=== PATIENT | female | born 1940 | race Caucasian/White ===

== ENCOUNTER 2017-06-18 00:33 | Emergency (ER) | payer OTHER, BC ==
[~2017-06-18] VITALS: Ht 157.5 cm; Wt 84.5 kg
[~2017-06-18 00:33] MED LIST: ASPIR 8181 M1 PO; CALAN120 MG PO; GLUCOPHAGE500 MG PO; HYDROCODON-ACE1 EAC7 PO; PRAVACHOL80 MG PO; SPIRIVA1 INHALATI IH; ZESTORETIC 20-1 EAC1 NG
[2017-06-18 01:20] LABS: APPEARANCE CLEAR ((CLEAR)); BILIRUBIN NEGATIVE; BLOOD SMALL; COLOR YELLOW ((YELLOW)); GLUCOSE (STRIP) NEGATIVE; KETONES NEGATIVE; LEUKOCYTES NEGATIVE; NITRITE NEGATIVE; PROTEIN (STRIP) NEGATIVE; SPECIFIC GRAVITY 1.017 (1.000-1.030); UROBILINOGEN 0.2 MG/DL (0.2-1.0)
[2017-06-18 01:26] LABS: BACTERIA RARE /HPF; EPITHELIAL CELLS RARE /HPF; MUCUS TRACE /LPF; RED BLOOD CELLS 0-5 /HPF (0-5); UCUL ADDED? NO; WHITE BLOOD CELLS 0-5 /HPF (0-5)
[2017-06-18 01:27] LABS: BASOPHIL (%) 0.2 % (0-1); EOSINOPHIL (%) 1.1 % (0-5); EOSINOPHIL COUNT 0.1 K/uL (0-0.3); HEMATOCRIT 42.4 % (36.0-46.0); HEMOGLOBIN 13.9 G/DL (11.9-15.5); IMMATURE GRANULOCYTE (%) 0.3 % (0.0-0.7); LYMPHOCYTE (%) 34.4 % (15-42); LYMPHOCYTE COUNT 3.4 K/uL (1.0-2.8); MCH 29.3 PG (29.0-34.0); MCHC 32.8 G/DL (30.0-36.0); MCV 89.3 FL (83-99); MONOCYTE (%) 5.5 % (3-12); MONOCYTE COUNT 0.5 K/uL (0-0.8); NEUTROPHIL (%) 58.5 % (45-76); NEUTROPHIL COUNT 5.7 K/uL (1.8-6.4); PLATELET COUNT 311 K/uL (156-360); RBC DIS.WIDTH-CV 13.5 % (11.8-14.6); RBC DIS.WIDTH-SD 44.4 % (39-53); RED BLOOD COUNT 4.75 M/uL (3.80-5.20); WHITE BLOOD COUNT 9.8 K/uL (4.1-10.2)
[2017-06-18 01:36] LABS: ALBUMIN 3.8 g/dL (3.2-4.8); CHLORIDE 109 mEq/L (99-109); POTASSIUM 3.7 mEq/L (3.7-5.4); SODIUM 142 mEq/L (136-147)
[2017-06-18 01:37] LABS: MAGNESIUM 1.8 mg/dL (1.3-2.7)
[2017-06-18 01:38] LABS: GLUCOSE 167 mg/dL (70-99); TOTAL PROTEIN 6.6 g/dL (6.4-8.3)
[2017-06-18 01:40] LABS: TOTAL BILIRUBIN 0.3 mg/dL (0.0-1.0)
[2017-06-18 01:42] LABS: ALKALINE PHOSPHATASE 137 IU/L (3-129); GFR ESTIMATE (CALCULATED) 57 mL/min/
[2017-06-18 01:43] LABS: UREA NITROGEN (BUN) 18 mg/dL (9-23)
[2017-06-18 01:44] LABS: AST (GOT) 23 IU/L (2-34)
[2017-06-18 01:45] LABS: ALT (GPT) 23 IU/L (3-49); LIPASE 20 U/L (1.0-51.0)
[2017-06-18 01:48] LABS: TROP-I INTERPRETATION NEGATIVE; TROPONIN-I < 0.01 ng/mL (0.0-0.30)
[2017-06-18] MEDS ORDERED: ZOFRAN ODT4 MG PO (04:11)
[2017-06-18 04:52] VITALS: BP 134/50
== END 2017-06-18 05:12 | disposition home or self-care (01) ==
LOC: EME → EDBD 00:33 → EME 00:33
PROVIDERS: Emergency Medicine
DX: K52.9 Noninfective gastroenteritis and colitis, unspecified (principal); E86.0 Dehydration; R55 Syncope and collapse; R05 Cough; R51 Headache; M54.9 Dorsalgia, unspecified; K57.30 Diverticulosis of large intestine without perforation or abscess without bleeding; I70.0 Atherosclerosis of aorta; I10 Essential (primary) hypertension; J44.9 Chronic obstructive pulmonary disease, unspecified; E11.9 Type 2 diabetes mellitus without complications; Z79.84 Long term (current) use of oral hypoglycemic drugs; Z79.82 Long term (current) use of aspirin; Z90.49 Acquired absence of other specified parts of digestive tract; Z90.710 Acquired absence of both cervix and uterus; Z88.0 Allergy status to penicillin; Z88.2 Allergy status to sulfonamides; Z87.891 Personal history of nicotine dependence
CPT/HCPCS: 71045; 74177; 80053; 81003; 83690; 83735; 84484; 85025; 87502; 93005; 99281; 99285; J1885; J7040